=== PATIENT | male | born 1970 | race Caucasian/White ===

== ENCOUNTER 2017-08-12 04:50 | Inpatient (IN) | payer BC ==
[2017-07-24 15:23] VITALS: BMI 38.0
--- NOTE | 2017-07-24 15:55 | PAT Medication Instructions ---
Service Date Jul 24, 2017. Current Home Medication List Allopurinol (Zyloprim), 100 MG PO QAM Esomeprazole Magnesium (Nexium), 20 MG PO QAM PRN for PRN Ibuprofen (Advil), 600 MG PO PRN Indomethacin (Indocin), 50 MG PO TID PRN for PRN Lisinopril (Prinivil), 5 MG PO QAM Metoprolol Succinate (Metoprolol Succinate ER), 100 MG PO QAM Multivitamin (Multivitamin), 1 TAB PO QAM Medication Instructions For Your Scheduled Surgery - Hold the following medications per surgeon's instructions: Ibuprofen (Advil), 600 MG PO PRN Indomethacin (Indocin), 50 MG PO TID PRN for PRN - Hold the following medications the morning of surgery: Multivitamin (Multivitamin), 1 TAB PO QAM Lisinopril (Prinivil), 5 MG PO QAM - Take the following medications the morning of surgery with a sip of water OTHERWISE NOTHING TO EAT OR DRINK AFTER MIDNIGHT: Metoprolol Succinate (Metoprolol Succinate ER), 100 MG PO QAM Allopurinol (Zyloprim), 100 MG PO QAM Esomeprazole Magnesium (Nexium), 20 MG PO QAM PRN If you have any questions please call us at [phone] or [phone] or [phone]
[2017-07-24 15:58] LABS: BASO % 0.5 %; BASO ABS # 0.04 K/uL (0-0.2); EOS % 1.6 %; EOS ABS # 0.14 K/uL (0-0.5); HEMATOCRIT 40.4 % (42-52); HEMOGLOBIN 13.8 g/dL (14.0-18.0); IG# 0.02 K/uL (0.00-0.02); LYMPH % 20.9 %; LYMPH ABS # 1.78 K/uL (1.2-3.4); MEAN CELL VOLUME 94.4 fL (80-100); MEAN CORPUSCULAR HEMOGLOBIN 32.2 pg (25-34); MEAN CORPUSCULAR HGB CONC 34.2 g/dl (32-36); MONO % 12.3 %; MONO ABS # 1.05 K/uL (0.11-0.59); NEUT % 64.5 %; NEUT ABS # 5.49 K/uL (1.4-6.5); PLATELET COUNT 206 K/uL (130-400); RED CELL DISTRIBUTION WIDTH CV 13.7 % (11.5-14.5); RED CELL DISTRIBUTION WIDTH SD 46.6 fL (36.4-46.3); WHITE BLOOD COUNT 8.52 K/uL (4.8-10.8)
[2017-07-24 16:05] LABS: ALBUMIN 3.8 gm/dl (3.4-5.0); CALCIUM 9.4 mg/dl (8.5-10.1); CREATININE 0.74 mg/dl (0.60-1.40); POTASSIUM 3.8 mmol/L (3.5-5.1)
[2017-07-24 16:07] LABS: PTT PATIENT 26.8 SECONDS (21.0-31.0)
--- NOTE | 2017-07-24 16:21 | DIAGNOSTIC IMAGING REPORT ---
CHEST 2 VIEWS ROUTINE HISTORY: Preop. COMPARISON: None. FINDINGS: The lungs are clear. Cardiac silhouette is normal in size. No pleural effusions. No pneumothorax. IMPRESSION: No acute process. Electronically signed by: Tirso Moura M.D. 07/24/2017 4:20 PM Dictated Date/Time: 07/24/2017 4:16 PM
--- NOTE | 2017-08-06 15:46 | HISTORY & PHYSICAL EXAMINATION ---
DATE OF ADMISSION: 08/12/2017 CHIEF COMPLAINT: Right hip pain. HISTORY OF PRESENT ILLNESS: Mr. Salas is a 47-year-old male with a 3- to 4-year history of right hip pain. The patient rates his pain an 8/10. He has pain with his daily activities. He has limited standing and walking tolerance. Pain is worse with weightbearing. The patient has had NSAIDS, injections and home exercise program without relief. He has failed conservative treatment and is scheduled for right hip replacement. PAST MEDICAL HISTORY: Hypertension. He denies heart disease, diabetes or DVT. PAST SURGICAL HISTORY: Bilateral carpal tunnel release in 2014. SOCIAL HISTORY: The patient drinks 5-6 beers per day. He denies tobacco use. He lives in a 2-satya home with his mother and is employed. FAMILY HISTORY: Negative for DVT. Positive for MT in his father at age 47. MEDICATIONS: Multivitamin, Nexium, metoprolol 100 mg, and allopurinol 100 mg. ALLERGIES: None. REVIEW OF SYSTEMS: See HPI. Ten other systems reviewed, all negative. PHYSICAL EXAMINATION: VITAL SIGNS: Height 6 feet 0 inch, weight 294, BMI 39. GENERAL: This is a well-developed, well-nourished male who is alert and oriented x3. Mood and affect are appropriate. HEENT: Normocephalic, atraumatic. Mucous membranes are moist and intact. NECK: Supple without lymphadenopathy. HEART: Regular rate and rhythm without murmurs, rubs or gallops. LUNGS: Clear to auscultation without wheezes or rhonchi. ABDOMEN: Soft and nontender. Bowel sounds are equal and active. EXTREMITIES: No ecchymosis, redness or warmth. He has no distal edema. Range of motion is decreased and reproduces pain in the groin. He is neurovascularly intact with +5/5 strength. X-RAY EXAMINATION: AP and lateral views show joint space narrowing and osteophyte formation. IMPRESSION: Degenerative joint disease, right hip. PLAN: The patient will be admitted for a right total hip arthroplasty. We will plan on aspirin for DVT prophylaxis. The patient will have [facility] for home PT upon discharge.
[2017-08-12] VITALS (9 sets, daily range): BP systolic 118–189; BP diastolic 75–98; PULSE 60–90; TEMP 36.4–37.2; O2SAT 94–97; Ht 182.9 cm; Wt 128.0 kg
[~2017-08-12] VITALS: Ht 182.9 cm; Wt 128.0 kg
[~2017-08-12 04:50] MED LIST: ALLO100T PO; ESOM20CA PO; IBUP-1050 PO; INDO-24 PO; LISI-729 PO; MULT-506 PO; TPRSR/100 PO
[2017-08-12] MEDS ORDERED: CeleBREX 200 MG CAP PO SCH (06:00)
[2017-08-12] MEDS ORDERED: LACTATED RINGER'S 1000ML IV SCH (06:00)
[2017-08-12] MEDS ORDERED: LACTATED RINGER'S 1000ML 500 ML IV SCH (06:00)
[2017-08-12] MEDS ORDERED: LACTATED RINGER'S 1000ML 1,000 ML IV SCH (06:00)
[2017-08-12] MEDS ORDERED: CEFAZOLIN 3000MG IV PUSH 15 ML IV SCH (06:00)
[2017-08-12] MEDS ORDERED: METOCLOPRAMIDE HCL 10 MG TAB PO SCH (06:00)
[2017-08-12] MEDS ORDERED: ACETAMINOPHEN 500 MG TAB PO SCH (06:00)
[2017-08-12] MEDS ORDERED: FAMOTIDINE 20 MG TAB PO SCH (06:00)
[2017-08-12] MEDS ORDERED: DEXAMETHASONE 4 MG TAB PO SCH (06:00)
[2017-08-12] MEDS ORDERED: ROPIVACAINE 5MG/ML 30 ML 150 MG, BUPIVACAINE 0.5% MPF INJ 30 ML, EpINEphrine HCL INJ 0.... INFIL SCH ×8 (06:00)
[2017-08-12] MEDS ORDERED: PROPOFOL IV EMULSION 10 MG/ML 20 ML VIAL IV ONE ×3 (06:29→07:43)
[2017-08-12] MEDS: TRANEXAMIC ACID INJ 1,000 MG in SYRINGE 0 ML IV SCH ×2 (06:30→06:35)
[2017-08-12] MEDS ORDERED: FENTANYL CITRATE INJ 50 MCG/1 ML 2 ML VIAL ONE (06:30)
[2017-08-12] MEDS ORDERED: MIDAZOLAM HCL 1 MG/ML 2ML VIAL ONE ×3 (06:30→07:55)
[2017-08-12] MEDS ORDERED: BUPIVACAINE 0.5 % 5 MG/1 ML PF 10ML VIAL ONE (06:33)
[2017-08-12] MEDS ORDERED: ORTHO JOINT ANESTHETIC ONE (06:48)
[2017-08-12] MEDS ORDERED: BACITRACIN 50000 UNIT VIAL ONE (06:48)
--- NOTE | 2017-08-12 06:48 | History & Physical Bridge Note ---
H&P Re-Evaluation Bridge Note: I have examined the patient, reviewed the History & Physical and in the interval since the performance of the History & Physical I have noted the following changes of clinical significance: No changes noted
[2017-08-12] MEDS ORDERED: POVIDONE-IODINE OP SOLN 30 ML BTL ONE (07:32)
[2017-08-12] MEDS ORDERED: PHENYLEPHRINE 100MCG/ML 5ML SYR ONE (07:36)
[2017-08-12] MEDS ORDERED: ONDANSETRON INJ 2 MG/ML 2 ML VIAL IV PRN ×2 (07:45→09:30)
[2017-08-12] MEDS ORDERED: PHENYLEPHRINE 100MCG/ML 5ML SYR IV PRN (07:45)
[2017-08-12] MEDS ORDERED: ATROPINE SULFATE 0.1 MG/ML 5ML SYR IV PRN (07:45)
[2017-08-12] MEDS ORDERED: EpHEDrine SULFATE INJ 50 MG/ML AMP IV PRN (07:45)
[2017-08-12] MEDS ORDERED: EpHEDrine SULFATE 50MG/5ML SYR ONE (07:58)
[2017-08-12] MEDS ORDERED: MoRPHine SULFATE 4 MG/ML 1 ML CARP\\VIAL IV PRN (09:30)
[2017-08-12] MEDS ORDERED: CEFAZOLIN IV 2,000 MG in DEXTROSE 5% 50ML 50 ML IV SCH (09:30)
--- NOTE | 2017-08-12 09:42 | [facility] Post Operative Brief Note ---
Immediate Operative Summary Operative Date Aug 12, 2017. Pre-Operative Diagnosis Right Hip Degenerative Joint Disease Post-Operative Diagnosis Right Hip Degenerative Joint Disease Procedure(s) Performed Right Total Hip Arthroplasty Surgeon Dr. Daniels Biogeographer Surgeon(s) [place] Bay PA-C Estimated Blood Loss 150 mL Findings see dictated op note Specimens A: Right Femoral Head Drains none Anesthesia spinal Complication(s) None Disposition Recovery Room / PACU
[2017-08-12] MEDS: HYDROmorphone INJ 2 MG/ML SYR/VIAL IV PRN ×4 (09:50→10:05)
--- NOTE | 2017-08-12 10:17 | Anesthesiology Progress Note ---
Anesthesia Post Op Note Date & Time Aug 12, 2017 at 10:17 Vital Signs Pain Intensity: 3 Vital Signs Past 12 Hours Date Time Temp Pulse Resp B/P (MAP) Pulse Ox O2 Delivery O2 Flow Rate FiO2 08/12/17 10:15 36.2 68 17 128/76 96 Room Air 08/12/17 10:05 69 16 141/94 95 Room Air 08/12/17 09:55 67 16 138/81 95 Room Air 08/12/17 09:47 36.1 72 16 163/93 96 Room Air 08/12/17 05:37 36.7 86 20 189/98 97 Room Air Notes Mental Status: alert / awake / arousable, participated in evaluation Pt Amnestic to Procedure: Yes Nausea / Vomiting: adequately controlled Pain: adequately controlled Airway Patency, RR, SpO2: stable & adequate BP & HR: stable & adequate Hydration State: stable & adequate Anesthetic Complications: no major complications apparent
--- NOTE | 2017-08-12 10:29 | DIAGNOSTIC IMAGING REPORT ---
R PELVIS/UNILATERAL HIP 1 VIEW CLINICAL HISTORY: Postop hip arthroplasty COMPARISON STUDY: None FINDINGS: There are postsurgical changes of a total right hip arthroplasty. There are overlying skin candie. No fractures or dislocations are visualized. IMPRESSION: Postsurgical changes of a total right hip arthroplasty. Electronically signed by: Hunter Clark M.D. 08/12/2017 10:28 AM Dictated Date/Time: 08/12/2017 10:27 AM
--- NOTE | 2017-08-12 10:55 | NUR ---
a;patient received in room 317 from recovery room,vss,lungs clear,active bowel sounds,room air,iv fluids infusing,rt hip silverlon dressing dry and intact,numbness noted to ble,positive bilateral pedal pulses,good cms,bilateral teds and scds on,patient instructed on the call garcia and to ring for assistance,phone and triflow use,instructed on bravo exercises and bravo precautions
[2017-08-12] MEDS: SODIUM CHLORIDE 0.9% 1000ML 1,000 ML IV SCH ×2 (11:45→14:34)
[2017-08-12] MEDS: CEFAZOLIN IV 2,000 MG in SYRINGE 0 ML IV SCH ×2 (13:15→21:46)
[2017-08-12] MEDS: ACETAMINOPHEN 500 MG TAB PO SCH ×2 (13:15→21:45)
--- NOTE | 2017-08-12 16:19 | Orthopedic Progress Note ---
Orthopedic Progress Note Date of Service Aug 12, 2017. Subjective Reports: feeling well, pain controlled w PO medications, Denies: complaints, chest pain, SOB, nausea / vomiting, light headedness, calf pain Additional Notes: Patient seen laying in bed, comfortable, no acute issues, pain well controlled. Objective RLE NVSI +EHL/FHL/TA/GS SILT grossly, CR< seconds, compartments soft NT, dressing with sanguinous drainage, intact. Date Time Temp Pulse Resp B/P (MAP) Pulse Ox O2 Delivery O2 Flow Rate FiO2 08/12/17 15:13 37.2 76 16 149/80 (103) 94 Nasal Cannula 08/12/17 13:28 36.7 90 19 172/85 (114) 95 Room Air 08/12/17 12:45 36.8 80 19 142/84 (103) 94 Room Air 08/12/17 11:45 36.4 71 19 148/94 (112) 95 Room Air 08/12/17 11:00 36.4 60 19 159/85 (109) 97 Room Air 08/12/17 10:53 97 Room Air 08/12/17 10:25 36.4 67 16 151/86 (107) 97 Room Air 08/12/17 10:25 97 Room Air 08/12/17 10:15 36.2 68 17 128/76 96 Room Air 08/12/17 10:05 69 16 141/94 95 Room Air 08/12/17 09:55 67 16 138/81 95 Room Air 08/12/17 09:47 36.1 72 16 163/93 96 Room Air 08/12/17 05:37 36.7 86 20 189/98 97 Room Air Assessment & Plan Assessment: s/p R RAMESH -NV checks -Ancef x 24hr -DVT ppx: ASA BID -WBAT RLE with assistance -PT/OT -PO XR: well aligned, well fixed prothesis, no fractures/dislocation -AM labs -DC planing: Home with home health
--- NOTE | 2017-08-12 19:53 | NUR ---
ID note: Pt is alert and oriented x4. VS are stable. IV fluids are infusing per MD order. Tolerating regular diet. Pt is OOB with one assist and walker. Pain is controlled with routine pain medications. Dressing to right hip is clean, dry, and intact. Bloody drainage noted in window of Silverlon dressing. Discharge plans are uncertain at this time.
--- NOTE | 2017-08-12 20:52 | [facility] Operative Report ---
Operative Report Operative Date Aug 12, 2017. Pre-Operative Diagnosis Right Hip Degenerative Joint Disease Post-Operative Diagnosis Right Hip Degenerative Joint Disease Procedure(s) Performed Right Total Hip Arthroplasty Surgeon Dr. Daniels Wood Sash And Frame Carpenter Surgeon(s) [place] Bay PA-C Estimated Blood Loss 150 mL Findings See dictated op note Specimens A: Right Femoral Head Drains none Anesthesia spinal Complication(s) None Disposition Recovery Room / PACU Indications The patient is a 47-year-old male who presents with severe progressive right hip DJD who has failed outpatient conservative treatments. I indicated the patient for a total hip replacement and the risks and benefits were explained in detail which included but not limited to infection, bleeding, blood clot, damage to surrounding bone, nerves, vessels, soft tissue, hip dislocation, failure of the prosthesis, leg length discrepancy, need for additional surgery and . The patient agreed to proceed with replacement of the right hip and informed consent was obtained. Description of Procedure Following induction of adequate spinal anesthesia, the patient was transferred to the OR table and placed in lateral decubitus position with left hip down. The right hip was prepped and draped in the typical sterile fashion and a posteriorlateral/Boubacar-Langenbeck incision was made. Subcutaneous tissue was sharply dissected. Electrocautery was utilized for hemostasis. The fascia was incised throughout the length of the wound and retracted with the Charnley retractor. The bursa was taken down and the short external rotators were identified. The piriformis was tagged with #1 Vicryl. The short external rotators and capsule were divided from the posterior aspect of the femur using electrocautery. The posterior capsule was tagged with #1 Vicryl. Both external rotators and posterior capsule were swept posteriorly and protected, along with protecting the sciatic nerve. The hip was dislocated by flexion and internally rotation in a controlled manner and exposure of the femoral neck was gained with an old-style Hohmann and a blunt cobra retractor. A femoral cutting guide was utilized for making the appropriate level femoral neck cut with reciprocating saw. The femoral head was removed, measured and reserved on the back table. Next, attention was turned to the acetabulum. A posterior and anterior offset retractor was placed to gain adequate exposure. Acetabular labrum as well as posterior capsule elements were removed using electrocautery and forceps. Fovea centralis was cleared of all soft tissue. Sequential reaming was performed starting at 48mm and carried up to a 51mm and decision was made to proceed with impaction of a 52mm trabecular metal cup. The TM cup was impacted and held using a single 30 mm bone screw. The trial acetabular liner was placed at this time. Next, attention was turned to the femoral portion of the case where a Bovie and pickup was used to further clear short external rotators from their insertion on the femur. Box osteotome and canal finder was used to gain access to the femoral canal and the lateral reamer on power was used to further open the proximal lateral canal. Sequentially rasping was carried up to a 9 which gave good fit and fill of the proximal femur. A trial reduction was carried out with an extended offset femoral neck component a -3.5 x 36 mm femoral head. The trial reduction was stable in all degrees of rotation with no [id number] impingement. The hip was dislocated, trial components were removed and access to the acetabulum was re-established. The trial liner was removed and the cup was irrigated to ensure all debris was removed. The final acetabular liner was inserted and properly seated in the cup which was inspected to insure no soft tissue entrapement. Access to the femur was once more gained and the size 9 femoral stem with extended offset was impacted into position. The hip was once more assessed with the -3.5 x 36mm femoral head. Stability was accessed and found to be excellent with equal leg lengths. The hip was dislocated for the last time and the final -3.5 x 36mm ceramic femoral head was impacted in place and the hip was reduced. Range of motion was checked once again and found to be stable. The wound was copiously irrigated with sterile saline solution. The fab-incisional soft tissue was injected utilizing [facility] Orthomix solution which includes a combination of Ropivicaine 0.5% 150mg, Bupivicaine 0.5%/Epinephrine 1:200,000 30ml, Toradol 30mg, Dexamethasone 4mg, Ketamine 10mg, Clonidine 100mcg and NSS 30ml. The piriformis, external rotators and capsule were repaired to the greater trochanter through bone tunnels using #5 FiberWire. The fascia was closed using #1 Vicryl, subcutaneous tissue was closed using 2-0 Vicryl, and skin was closed with candie. Sterile dressings were applied which included Silverlon adhesive dressing. The patient tolerated the procedure well and was transported to PACU in stable condition. Due to the complex nature of the procedure, the entire surgery was performed with the operational assistance of Venecia Bay PA-C. The tiler's assistant, under direct supervision, was involved in the actual performance of all aspects of the surgical procedure including hemostasis, tissue retraction and incision, instrument management, patient positioning, and wound closure. I attest to the content of the Intraoperative Record and any orders documented therein. Any exceptions are noted below.
[2017-08-12] MEDS: ASPIRIN 325 MG ECTAB PO SCH (21:44)
[2017-08-12] MEDS: DOCUSATE SODIUM 100 MG CAP PO SCH (21:44)
[2017-08-12] MEDS: OXYCODONE HCL IR 5 MG TAB (IMMEDIATE RELEASE) PO PRN ×2 (21:45→22:46)
[2017-08-13] MEDS: SODIUM CHLORIDE 0.9% 1000ML 1,000 ML IV SCH ×2 (00:28→09:00)
[2017-08-13] MEDS ORDERED: NURSING VERBAL MED ORDER SCH (01:15)
[2017-08-13 03:11] VITALS: BP 114/67; PULSE 72; TEMP 36.7; O2SAT 96
[2017-08-13] MEDS: ACETAMINOPHEN 500 MG TAB PO SCH ×2 (06:24→13:51)
[2017-08-13 06:31] LABS: BASO % 0.1 %; BASO ABS # 0.01 K/uL (0-0.2); HEMATOCRIT 32.1 % (42-52); HEMOGLOBIN 10.7 g/dL (14.0-18.0); IG# 0.06 K/uL (0.00-0.02); LYMPH % 5.4 %; LYMPH ABS # 0.81 K/uL (1.2-3.4); MEAN CELL VOLUME 94.4 fL (80-100); MEAN CORPUSCULAR HEMOGLOBIN 31.5 pg (25-34); MEAN CORPUSCULAR HGB CONC 33.3 g/dl (32-36); MEAN PLATELET VOLUME 12.1 fL (7.4-10.4); MONO % 15.1 %; MONO ABS # 2.25 K/uL (0.11-0.59); NEUT ABS # 11.81 K/uL (1.4-6.5); PLATELET COUNT 166 K/uL (130-400); RED CELL DISTRIBUTION WIDTH CV 13.7 % (11.5-14.5); RED CELL DISTRIBUTION WIDTH SD 47.5 fL (36.4-46.3); WHITE BLOOD COUNT 14.94 K/uL (4.8-10.8)
[2017-08-13 06:42] LABS: INR 1.1 (0.9-1.1)
[2017-08-13 07:04] LABS: CALCIUM 8.2 mg/dl (8.5-10.1); CREATININE 0.54 mg/dl (0.60-1.40); POTASSIUM 3.6 mmol/L (3.5-5.1)
[2017-08-13] MEDS ORDERED: ASPEC325 PO (07:26)
[2017-08-13] MEDS ORDERED: RXC5 PO (07:26)
[2017-08-13] MEDS ORDERED: CLC100 PO (07:26)
--- NOTE | 2017-08-13 07:27 | Discharge Instructions ---
Discharge Instructions Date of Service Aug 13, 2017. Admission Reason for Admission: Right Hip Osteoarthritis Discharge Discharge Diagnosis / Problem: Right total hip arthroplasty Discharge Goals Goal(s): Decrease discomfort, Improve function, Increase independence Activity Recommendations Activity Limitations: per Instructions/Follow-up section Weightbearing Status: Right weightbearing (as tolerated) . Instructions / Follow-Up Instructions / Follow-Up See attached DC instructions Current Hospital Diet Patient's current hospital diet: Regular Diet Discharge Diet Recommended Diet: Regular Diet Procedures Procedures Performed: Right Total Hip Arthroplasty Pending Studies Studies pending at discharge: no Medical Emergencies . Who to Call and When: Medical Emergencies: If at any time you feel your situation is an emergency, please call 911 immediately. . Non-Emergent Contact Non-Emergency issues call your: Primary Care Provider Call Non-Emergent contact if: you have a fever, temperature is above 100.5, temperature is above 101, temperature is above 101.5, your pain is not controlled, your pain is worsening, your pain is unusual for you, your pain is concerning you, wound has increased drainage, wound has increased redness, wound has increased pain, you have any medication questions . "Provider Documentation" section prepared by Curly Daniels. . VTE Core Measure Inpt VTE Proph given/why not?: Other Anticoagulation, T.E.DDeyanira Snachez PA Drug Monitoring Program Search Results: patient reviewed within database, no issues identified
--- NOTE | 2017-08-13 07:33 | Orthopedic Progress Note ---
Orthopedic Progress Note Date of Service Aug 13, 2017. Subjective Post OP Day: 1 Reports: feeling well, Denies: complaints, chest pain, SOB, nausea / vomiting, light headedness, calf pain, pain controlled w PO medications, using DECKHAND Additional Notes: Patient seen at bedside, comfortable, pain controlled with PO medications, no acute issues overnight Objective NAD, AOx3 RLE NVSI +EHL/FHL/TA/GS SILT grossly, CR< 2 seconds, compartments soft NT, dressing with mild sanguinous drainage, intact Date Time Temp Pulse Resp B/P (MAP) Pulse Ox O2 Delivery O2 Flow Rate FiO2 08/13/17 03:11 36.7 72 18 114/67 (83) 96 Room Air 08/13/17 00:00 Room Air 08/12/17 23:07 36.6 79 18 124/78 (93) 94 Room Air 08/12/17 19:24 36.8 88 18 118/75 (89) 94 Room Air 08/12/17 15:45 Room Air 08/12/17 15:13 37.2 76 16 149/80 (103) 94 Nasal Cannula 08/12/17 13:28 36.7 90 19 172/85 (114) 95 Room Air 08/12/17 12:45 36.8 80 19 142/84 (103) 94 Room Air 08/12/17 11:45 36.4 71 19 148/94 (112) 95 Room Air 08/12/17 11:00 36.4 60 19 159/85 (109) 97 Room Air 08/12/17 10:53 97 Room Air 08/12/17 10:25 36.4 67 16 151/86 (107) 97 Room Air 08/12/17 10:25 97 Room Air 08/12/17 10:15 36.2 68 17 128/76 96 Room Air 08/12/17 10:05 69 16 141/94 95 Room Air 08/12/17 09:55 67 16 138/81 95 Room Air 08/12/17 09:47 36.1 72 16 163/93 96 Room Air Laboratory Results 24 Hours: Test 08/13/17 06:09 White Blood Count 14.94 K/uL Red Blood Count 3.40 M/uL Hemoglobin 10.7 g/dL Hematocrit 32.1 % Mean Corpuscular Volume 94.4 fL Mean Corpuscular Hemoglobin 31.5 pg Mean Corpuscular Hemoglobin Concent 33.3 g/dl Platelet Count 166 K/uL Mean Platelet Volume 12.1 fL Neutrophils (%) (Auto) 79.0 % Lymphocytes (%) (Auto) 5.4 % Monocytes (%) (Auto) 15.1 % Eosinophils (%) (Auto) 0.0 % Basophils (%) (Auto) 0.1 % Neutrophils # (Auto) 11.81 K/uL Lymphocytes # (Auto) 0.81 K/uL Monocytes # (Auto) 2.25 K/uL Eosinophils # (Auto) 0.00 K/uL Basophils # (Auto) 0.01 K/uL Prothromb Time International Ratio 1.1 Prothrombin Time 11.9 SECONDS Assessment & Plan Assessment: s/p R RAMESH POD#1 -NV checks -Ancef x 24hr -DVT ppx: ASA BID -WBAT RLE with assistance -PT/OT -PO XR: well aligned, well fixed prothesis, no fractures/dislocation -AM labs - hgb 10.7 -DC planing: Home with home health today
[2017-08-13] MEDS ORDERED: ACET-24 PO (07:38)
[2017-08-13] MEDS ORDERED: ONDA-170 PO (07:38)
[2017-08-13] MEDS ORDERED: CLB200 PO (07:38)
[2017-08-13 07:55] VITALS: BP 120/78; PULSE 65; TEMP 36.6; O2SAT 96
--- NOTE | 2017-08-13 08:49 | Anesthesiology Progress Note ---
Anesthesia Post Op Note Date & Time Aug 13, 2017 at 08:49 Vital Signs Vital Signs Past 12 Hours Date Time Temp Pulse Resp B/P (MAP) Pulse Ox O2 Delivery O2 Flow Rate FiO2 08/13/17 08:00 Room Air 08/13/17 07:55 96 Room Air 08/13/17 07:55 36.6 65 19 120/78 (92) 96 Room Air 08/13/17 03:11 36.7 72 18 114/67 (83) 96 Room Air 08/13/17 00:00 Room Air 08/12/17 23:07 36.6 79 18 124/78 (93) 94 Room Air Notes Mental Status: alert / awake / arousable, participated in evaluation Pt Amnestic to Procedure: Yes Nausea / Vomiting: adequately controlled Pain: adequately controlled Airway Patency, RR, SpO2: stable & adequate BP & HR: stable & adequate Hydration State: stable & adequate Neuraxial Anesthesia: was administered, sensory block resolved Anesthetic Complications: no major complications apparent
[2017-08-13] MEDS: DOCUSATE SODIUM 100 MG CAP PO SCH (08:59)
[2017-08-13] MEDS: ASPIRIN 325 MG ECTAB PO SCH (08:59)
[2017-08-13] MEDS ORDERED: PANTOprazole SOD 40 MG TAB PO PRN (09:00)
[2017-08-13] MEDS ORDERED: ALLOPURINOL 100 MG TAB PO SCH (09:00)
[2017-08-13] MEDS ORDERED: LISINOPRIL 5 MG TAB PO SCH (09:00)
[2017-08-13] MEDS ORDERED: MULTIVITAMIN TAB PO SCH (09:00)
[2017-08-13] MEDS: OXYCODONE HCL IR 5 MG TAB (IMMEDIATE RELEASE) PO PRN ×2 (09:08→12:04)
--- NOTE | 2017-08-13 10:52 | NUR ---
Case Management: Met with pt at bedside. Pt reports he lives with his mother in a two story home with five steps to enter. States there is railing on the steps. His bedroom and bathroom are on the second floor and states there is railing to access second floor. Pt reports being independent with ADLs and ambulation. Reports he plans to use crutches when he discharges home. There is a set of crutches at bedside. Pt plans to return home with home health. Choices offered and he requests referral to [facility]. Assistant chapman referral. No other discharge needs identified. Case Management to follow.
[2017-08-13 11:57] VITALS: BP 114/72; PULSE 82; TEMP 36.8; O2SAT 95
[2017-08-13 13:34] VITALS: BP 114/72; PULSE 82; TEMP 36.8; O2SAT 95
--- NOTE | 2017-08-15 08:18 | DISCHARGE SUMMARY ---
DISCHARGE DIAGNOSIS: Degenerative joint disease, right hip. SECONDARY DIAGNOSIS: None. CONSULTS: None. COMPLICATIONS: None. PROCEDURE: The patient underwent a right total hip arthroplasty with Dr Daniels. BRIEF HISTORY: Please see previously dictated history and physical. HOSPITAL SUMMARY: The patient was admitted on the above day for the above procedure. Procedure went without complication. Postoperatively, the patient was resting comfortably without complaints. He denied chest pain or shortness of breath. Vital signs were stable. He was afebrile. Postop day 1, the patient continued to improve. He denied chest pain or shortness of breath. Vital signs were stable. He was afebrile. He had no acute issues overnight. Vital signs were stable. He was afebrile. He was alert and oriented. He was neurovascularly intact. Capillary refill was less than 2 seconds. Compartments are soft and nontender. Dressing had mild serosanguineous drainage. The hip was located. Hemoglobin was 10.7. The patient began physical therapy per protocol. He was discharged to home later that day in stable condition. For further review please see the chart. Lab, x-ray data and discharge instructions as per chart.
== END 2017-08-13 14:45 | disposition home health service (06) | DRG 470 ==
LOC: C.ACU 04:50 → C.3E 09:30 → ENRESERV 09:56
PROVIDERS: ADMIT Orthopaedic Surgery; ATTEND Orthopaedic Surgery
PROC: 0SR903Z Replacement of Right Hip Joint with Ceramic Synthetic Substitute, Open Approach (ICD-10-PCS; principal; 2017-08-12 07:00)
DX: M16.11 Unilateral primary osteoarthritis, right hip (principal); I10 Essential (primary) hypertension; Z82.49 Family history of ischemic heart disease and other diseases of the circulatory system